=== PATIENT | female | born 1995 | race Caucasian/White ===

== ENCOUNTER 2024-07-07 02:18 | Emergency (ER) | payer OTHER, SELFPAY ==
[2024-07-07 02:25] VITALS: BP 124/70; PULSE 124; RESP 16; TEMP 36.9; O2SAT 98; BMI 22.7
[2024-07-07 02:52] LABS: MANUAL DIFF FLAG NO
[2024-07-07 02:53] LABS: Basophils Percent Auto 0.3 % (0-2); Eosinophils Absolute Auto 0.1 X10*3/uL (0.0-0.4); Eosinophils Percent Auto 1.9 % (0-4); Hematocrit 35.6 % (37.0-47.0); Hemoglobin 12.2 g/dl (12.0-16.0); Imm Gran Abs Auto 0.01 X10*3/uL (0.00-0.03); Imm Gran Pct Auto 0.2 % (0.0-0.4); Lymphocytes Absolute Auto 1.2 X10*3/uL (1.2-4.9); Lymphocytes Percent Auto 20.5 % (20-40); Mean Corpuscular HGB Conc 34.3 g/dl (31.0-35.0); Mean Corpuscular Hemoglobin 29.5 pg (27.0-33.0); Mean Platelet Volume 8.3 fL (9.4-12.3); Monocytes Absolute Auto 0.6 X10*3/uL (0.1-1.2); Monocytes Percent Auto 9.6 % (2-11); Neutrophils Percent Auto 67.5 % (45-73); Platelet Count 318 X10*3/uL (160-400); Red Blood Count 4.14 X10*6/uL (4.20-5.50); Red Cell Distribution Width 12.4 % (11.0-16.0); White Blood Count 5.9 X10*3/uL (4.8-10.8)
[2024-07-07 03:07] LABS: Anion Gap 13 (12-20); Blood Urea Nitrogen 11 mg/dL (9-16); Carbon Dioxide 18 mmol/L (22-29); Chloride 111 mmol/L (96-108); Creatinine Clr Calc Pharmacy 105.7; Estimated Glomerular Filt Rate > 60; Glucose Random 101 mg/dL (60-115); Potassium 3.5 mmol/L (3.3-5.1); Sodium 138 mmol/L (135-145)
== END 2024-07-07 03:22 | disposition left against medical advice (07) ==
PROVIDERS: Emergency Provider Emergency Medicine; PCP Internal Medicine
DX: R10.9 Unspecified abdominal pain (principal); R11.2 Nausea with vomiting, unspecified; R19.7 Diarrhea, unspecified; Z53.21 Procedure and treatment not carried out due to patient leaving prior to being seen by health care provider
CPT/HCPCS: 36415; 80048; 85025; 99281

== ENCOUNTER 2024-07-09 18:00 | Emergency (ER) | payer OTHER, SELFPAY ==
--- NOTE | ~2024-07-09 | XR_ITS ---
CLINICAL HISTORY: pain, constipation Single view of the abdomen. COMPARISON: None FINDINGS: Normal bowel distention. No abnormal calcifications. No pneumoperitoneum identified. Moderate to large colonic stool burden. No fracture identified. IMPRESSION: 1. Nonspecific nonobstructive bowel gas pattern. 2. Moderate to large colonic stool burden. This document has been electronically signed by: Mike Solano MD on 07/09/2024 19:45:18
[2024-07-09 18:13] VITALS: BP 121/70; PULSE 103; RESP 18; TEMP 36.9; O2SAT 98; BMI 22.3
--- NOTE | 2024-07-09 18:14 | ED.GENADULT ---
HPI - General Adult General Chief complaint: General Medical Stated complaint: rectal bleeding Time Seen by Provider: 07/09/24 22:25 Source: patient Mode of arrival: ambulatory Limitations: no limitations History of Present Illness ED Provider: HPI narrative: Patient's history of constipation goes once or twice a week comes here for hemorrhoidal bleed small amount just prior to arrival when she tried to push and move her bowels Related Data Previous Rx's ?Medication ?Instructions ?Recorded bisacodyl 5 mg tablet,delayed 10 mg (2 x 5 mg) PO BEDTIME PRN 07/09/24 release (Dulcolax (bisacodyl)) constipation #30 tabs hydrocortisone acetate 25 mg 25 mg KS BID #12 ea 07/09/24 rectal suppository (Anusol-HC) polyethylene glycol 3350 17 17 g PO DAILY #510 grams 07/09/24 gram/dose oral powder (Miralax) Allergies Allergy/AdvReac Type Severity Reaction Status Date / Time cephalexin [From Keflex] Allergy Anaphylaxis Verified 07/09/24 18:15 egg [eggs] Allergy Vomiting Verified 07/09/24 18:15 fish derived [fish] Allergy Vomiting Verified 07/09/24 18:15 Review of Systems Review of Systems: Yes all other systems are reviewed and are negative [facility] Social History Social History Advance Directives: No Advance Directives Information Provided: No Do you have a plan to hurt others: No Plan Physical Exam ED Vital Signs: Vital Signs - 24 hr 07/09/24 18:13 07/09/24 21:35 Temperature 98.4 F 98.2 F Pulse Rate 103 H 82 Respiratory Rate 18 20 Blood Pressure 121/70 111/71 Pulse Oximetry 98 99 Oxygen Delivery Method Room Air Room Air BMI result Body Mass Index 22.3 Appearance: Alert. Oriented X3. No acute distress. Eyes: No pallor or ENT: Pharynx normal. Oral Mucosa moist Neck: Normal inspection. Neck supple. CVS: Normal heart rate and rhythm. Pulses normal. Respiratory: No respiratory distress. Equal air entry bilateral, Abdomen: Soft and nontender. Bowel sounds are present, no mass palpable, no CVA tenderness Skin: Skin warm and dry. Normal skin color. Normal skin turgor. Extremities: No lower extremity edema. No calf tenderness Neuro: Oriented X 3. Course Course Course Narrative: RME, this is a rapid medical exam performed by Yehuda Gutierrez please refer to primary provider for complete H&P- 28-year-old female presents for evaluation of rectal bleeding and a painful lump in her rectum. She was constipated earlier today and had to self disimpact. She still has 9/10 rectal pain. Plan for KUB and direct visualization Medications Administered Discontinued Medications Generic Name Dose Route Start Last Admin Trade Name Steven PRN Reason Stop Dose Admin Bisacodyl 10 mg 07/09/24 22:38 07/09/24 23:05 Bisacodyl 5 Mg Tablet.Dr PO 07/09/24 22:39 10 mg ONCE ONE Administration Magnesium Hydroxide 30 ml 07/09/24 22:39 07/09/24 23:05 Milk Of Magnesia 30 Ml Oral.Susp PO 07/09/24 22:40 30 ml ONCE ONE Administration Medical Decision Making Medical Decision Making MDM Narrative: Patient's showed the picture of small external hemorrhoid which is not bleeding KUB showed moderate amount of stool will give stool softener and suppository Independent Interpretation I performed an independent interpretation of an: Plain X-Ray Radiology Impression Discussion of test interpretation with radiology: I have reviewed the radiologist's reading. Discharge Plan Discharge Clinical Impression: Constipation, Hemorrhoid Patient Disposition: Home, Self-Care Instructions: Constipation (ED), Hemorrhoids (ED) Additional Instructions: Drink plenty of fluids Take stool softener as prescribed Anusol suppository twice daily as advised Avoid straining Prescriptions: New polyethylene glycol 3350 [Miralax] 17 gram/dose powder 17 g PO DAILY Qty: 510 0RF bisacodyl [Dulcolax (bisacodyl)] 5 mg tablet,delayed release (DR/EC) 10 mg PO BEDTIME PRN (Reason: constipation) Qty: 30 0RF hydrocortisone acetate [Anusol-HC] 25 mg suppository 25 mg KS BID Qty: 12 0RF Print Language: Armenian
[2024-07-09 21:35] VITALS: BP 111/71; PULSE 82; RESP 20; TEMP 36.8; O2SAT 99
[2024-07-09] MEDS: bisacodyL 5 MG TABLET.DR 10 MG PO (23:05)
[2024-07-09] MEDS: Milk of Magnesia 30 ML ORAL.SUSP PO (23:05)
[2024-07-09 23:22] VITALS: BP 111/71; PULSE 82; RESP 20; TEMP 36.8; O2SAT 99
== END 2024-07-09 23:23 | disposition home or self-care (01) ==
PROVIDERS: Emergency Provider Internal Medicine
DX: K59.00 Constipation, unspecified (principal); K64.4 Residual hemorrhoidal skin tags; K62.89 Other specified diseases of anus and rectum
CPT/HCPCS: 74018; 99284

== ENCOUNTER → 2024-07-09 18:14 | Outpatient (BNV) | payer OTHER, SELFPAY | PROVIDERS: Visit Provider Radiology Diagnostic Radiology | DX: K59.00 Constipation, unspecified (principal) | CPT/HCPCS: 74018 ==